=== PATIENT | female | born 1935 | race Two or more races ===

== ENCOUNTER 2018-03-27 12:50 | Day surgery (SDC) | payer MEDICARE ==
[~2018-03-27] VITALS: Ht 162.6 cm; Wt 52.3 kg
[2018-03-27] MEDS ORDERED: fentaNYL/PF 50MCG/1 ML 2ML syringe ONE (13:07)
[2018-03-27] MEDS ORDERED: MIDAZolam 5mg/5ml vial ONE (13:08)
[2018-03-27 13:48] VITALS: BP 116/67
[2018-03-27] MEDS ORDERED: CARB1TAB23 PO (14:07)
[2018-03-27] MEDS ORDERED: GABA600T2 PO (14:10)
[2018-03-27] MEDS ORDERED: XAL0.005OS OP (14:12)
[2018-03-27] MEDS ORDERED: CARB1CAP3 PO (14:12)
[2018-03-27] MEDS ORDERED: CHOL10002 PO (14:13)
[2018-03-27 14:26] VITALS: BP 146/71
[2018-03-27 14:36] VITALS: BP 125/71
[2018-03-27 14:46] VITALS: BP 126/60
[2018-03-27 15:56] VITALS: BP 125/69
== END 2018-03-27 15:25 | disposition home or self-care (01) ==
LOC: GI LAB 12:50
PROVIDERS: ATTEND Internal Medicine Gastroenterology
DX: K62.1 Rectal polyp (principal); K64.8 Other hemorrhoids; K59.00 Constipation, unspecified; G20 Parkinson's disease; Z72.89 Other problems related to lifestyle; Z86.69 Personal history of other diseases of the nervous system and sense organs; Z88.5 Allergy status to narcotic agent; Z88.6 Allergy status to analgesic agent; Z79.891 Long term (current) use of opiate analgesic; Z88.8 Allergy status to other drugs, medicaments and biological substances; Z79.899 Other long term (current) drug therapy
CPT/HCPCS: 45385; G0500; J2250; J3010; J7030; A4620